=== PATIENT | male | born 1935 | race Caucasian/White ===

== ENCOUNTER 2017-02-14 15:01 | Emergency (ER) | payer MEDICARE, OTHER ==
[~2017-02-14] VITALS: Ht 180.3 cm; Wt 87.0 kg
[2017-02-14 15:05] VITALS: BP 176/115; PULSE 144; RESP 18; TEMP 97.9; O2SAT 94
[2017-02-14] MEDS ORDERED: ONDANSETRON HCL 4 MG/2 ML VIAL IVP ONE (15:30)
[2017-02-14] MEDS ORDERED: DILTIAZEM HCL 25 MG/5 ML VIAL IV ONE (15:30)
[2017-02-14] MEDS ORDERED: SODIUM CHLOR 0.9% 1000 ML INJ 1,000 ML IV ONE (15:30)
--- NOTE | 2017-02-14 15:32 | PD ---
HPI Chief Complaint: Respiratory Symptoms Time Seen by Provider: 15:27 Travel History International Travel<30 days: No Contact w/Intl Traveler<30days: No Traveled to known affect area: No History of Present Illness HPI This patient presents with rapid heart beat. He feels weak and lightheaded. He has history of chronic A. fib on Xarelto. For The last 3 days he's had nausea and vomiting and diarrhea and not take any of his medications. Severity is moderate. No alleviating factors. Patient has a daily heavy alcohol abuser. Denies alcohol today. Denies seizure activity. Duration 3 days PFSH Social History Alcohol Use: Yes Tobacco Use: No Substance Use: No Allergies-Medications (Allergen,Severity, Reaction): Coded Allergies: No Known Allergies (Unverified , 02/14/17) Reported Meds & Prescriptions Reported Meds & Active Scripts Active Reported Fenofibrate 150 Mg Cap 200 Mg PO DAILY Lisinopril 5 Mg Tab 5 Mg PO DAILY Xarelto (Rivaroxaban) 15 Mg Tab 15 Mg PO DAILY Tamsulosin (Tamsulosin HCl) 0.4 Mg Cap 0.4 Mg PO HS Duloxetine DR (Duloxetine HCl) 30 Mg Capdr 50 Mg PO DAILY Metoprolol Tartrate 100 Mg Tab 100 Mg PO DAILY Omeprazole 20 Mg Tab 20 Mg PO DAILY Uloric (Febuxostat) 40 Mg Tab 1 Tab PO DAILY Tiazac (Diltiazem ER 24 HR) 240 Mg Caper 240 Mg PO DAILY Review of Systems General / Constitutional: No: Fever Eyes: No: Visual changes HENT: No: Headaches Cardiovascular: Positive: Irregular Rhythm, Tachycardia, No: Chest Pain or Discomfort Respiratory: No: Shortness of Breath Gastrointestinal: No: Abdominal Pain Genitourinary: No: Dysuria Musculoskeletal: Positive: Weakness, No: Pain Skin: No Rash Neurologic: Positive: Weakness Psychiatric: Positive: Substance Abuse, No: Depression Endocrine: No: Polydipsia Hematologic/Lymphatic: No: Easy Bruising Physical Exam Narrative GENERAL: Well-nourished, well-developed patient in no apparent distress. SKIN: Focused skin assessment reveals no rash and nodules. Skin is Warm and dry. HEAD: Atraumatic. Normocephalic. EYES: Pupils equal and round. No scleral icterus. No injection or drainage. ENT: No nasal bleeding or discharge. Mucous membranes pink and moist. NECK: Trachea midline. No JVD. CARDIOVASCULAR: Irregularly irregular rhythm. No murmur appreciated. Rate of 150 RESPIRATORY: No accessory muscle use. Clear to auscultation. Breath sounds equal bilaterally. GASTROINTESTINAL: Abdomen soft, non-tender, nondistended. Hepatic and splenic margins not palpable. MUSCULOSKELETAL: No obvious deformities. No clubbing. No cyanosis. No edema. NEUROLOGICAL: Awake and alert. No obvious cranial nerve deficits. Motor grossly within normal limits. Normal speech. PSYCHIATRIC: Appropriate mood and affect; insight and judgment normal. Data Data Last Documented VS Vital Signs Date Time Temp Pulse Resp B/P Pulse Ox O2 Delivery O2 Flow Rate FiO2 02/14/17 16:39 92 20 157/95 98 Room Air 02/14/17 15:05 97.9 Orders Iv Access Insert/Monitor (02/14/17 15:28) Complete Blood Count With Diff (02/14/17 15:28) Basic Metabolic Panel (Bmp) (02/14/17 15:28) Ondansetron Inj (Zofran Inj) (02/14/17 15:30) Sodium Chlor 0.9% 1000 Ml Inj (Ns 1000 M (02/14/17 15:30) Diltiazem Inj (Cardizem Inj) (02/14/17 15:30) Alcohol (Ethanol) (02/14/17 15:29) Labs Laboratory Tests Test 02/14/17 15:30 White Blood Count 8.0 TH/MM3 Red Blood Count 5.38 MIL/MM3 Hemoglobin 16.7 GM/DL Hematocrit 49.9 % Mean Corpuscular Volume 92.9 FL Mean Corpuscular Hemoglobin 31.0 PG Mean Corpuscular Hemoglobin 33.4 % Concent Red Cell Distribution Width 13.8 % Platelet Count 166 TH/MM3 Mean Platelet Volume 8.9 FL Neutrophils (%) (Auto) 78.3 % Lymphocytes (%) (Auto) 14.1 % Monocytes (%) (Auto) 6.8 % Eosinophils (%) (Auto) 0.5 % Basophils (%) (Auto) 0.3 % Neutrophils # (Auto) 6.4 TH/MM3 Lymphocytes # (Auto) 1.1 TH/MM3 Monocytes # (Auto) 0.5 TH/MM3 Eosinophils # (Auto) 0.0 TH/MM3 Basophils # (Auto) 0.0 TH/MM3 CBC Comment DIFF FINAL Differential Comment Sodium Level 143 MEQ/L Potassium Level 3.9 MEQ/L Chloride Level 104 MEQ/L Carbon Dioxide Level 30.0 MEQ/L Anion Gap 9 MEQ/L Blood Urea Nitrogen 18 MG/DL Creatinine 1.10 MG/DL Estimat Glomerular Filtration 64 ML/MIN Rate Random Glucose 119 MG/DL Calcium Level 10.1 MG/DL Ethyl Alcohol Level LESS THAN 3 MG/DL MDM Medical Decision Making Medical Screen Exam Complete: Yes Emergency Medical Condition: Yes Medical Record Reviewed: Yes Differential Diagnosis A. fib with RVR, SVT, V. tach Narrative Course I have reviewed the patient's electronic medical record. IV placed I gave him 20 mg IV Cardizem for rate control CBC is normal Metabolic profile is normal Alcohol is negative Patient is neurologically intact Is not having any pain On recheck he has good rate control from 1 dose of Cardizem Extended cardiac monitoring reveals A. fib but now rate of 90 Stable for outpatient follow-up. We had a lengthy discussion with regarding the dangers of his heavy alcohol drinking while being on a blood thinner Diagnosis Primary Impression: Atrial fibrillation with RVR Additional Impressions: Alcohol abuse Nausea and vomiting Qualified Code: R11.2 - Non-intractable vomiting with nausea, unspecified vomiting type Additional Instructions: The patient was advised to follow up with their physician and return if they worsen. Limit alcohol abuse Take metoprolol when he get home Med/Other Pt SpecificInfo: Other Disposition: 01 DISCHARGE HOME Condition: Stable Bong Kauffman MD Feb 14, 2017 15:32
[2017-02-14] MEDS ORDERED: XARE15TA PO (15:36)
[2017-02-14] MEDS ORDERED: METO100T PO (15:36)
[2017-02-14] MEDS ORDERED: FENO1CAP29 PO (15:36)
[2017-02-14] MEDS ORDERED: DILT-8 PO (15:36)
[2017-02-14] MEDS ORDERED: DULO1CAP2 PO (15:36)
[2017-02-14] MEDS ORDERED: OMEP20TA PO (15:36)
[2017-02-14] MEDS ORDERED: ULOR40TA PO (15:36)
[2017-02-14] MEDS ORDERED: LISI-519 PO (15:36)
[2017-02-14] MEDS ORDERED: TAMS0.4C4 PO (15:36)
[2017-02-14 15:40] VITALS: BP 143/91; PULSE 132; RESP 20; O2SAT 95
[2017-02-14 15:54] VITALS: BP 135/72; PULSE 92; RESP 20; O2SAT 96
[2017-02-14 16:17] LABS: AUTOMATED NEUTROPHIL # 6.4 TH/MM3 (1.8-7.7); BASOPHIL % 0.3 % (0.0-2.0); EOSINOPHIL % 0.5 % (0.0-4.0); HEMATOCRIT 49.9 % (39.0-51.0); HEMO FLAGS DIFF FINAL; LYMPH % 14.1 % (9.0-44.0); LYMPHOCYTE # 1.1 TH/MM3 (1.0-4.8); MEAN CELL VOLUME 92.9 FL (80.0-100.0); MEAN CORPUSCULAR HGB CONC 33.4 % (32.0-36.0); MONO % 6.8 % (0.0-8.0); NEUT % 78.3 % (16.0-70.0); PLATELET COUNT 166 TH/MM3 (150-450); RED BLOOD COUNT 5.38 MIL/MM3 (4.50-5.90); RED CELL DISTRIBUTION WIDTH 13.8 % (11.6-17.2)
[2017-02-14 16:25] LABS: POTASSIUM 3.9 MEQ/L (3.5-5.1)
[2017-02-14 16:39] VITALS: BP 157/95; PULSE 2; PULSE 92; RESP 20; O2SAT 98
[2017-02-14] MEDS ORDERED: ZOFR4TAB PO ×2 (17:37→18:08)
[2017-02-14 17:53] VITALS: BP 160/93; PULSE 97; RESP 16; O2SAT 93
--- NOTE | 2017-02-15 16:42 | EKG ---
Date Performed: 02/14/2017 Time Performed: 15:18:29 PTAGE: 82 years EKG: ATRIAL FIBRILLATION WITH RAPID VENTRICULAR RESPONSE LOW QRS VOLTAGE IN EXTREMITY LEADS MODE RATE ST DEPRESSION ABNORMAL ECG NO PREVIOUS TRACING DOCTOR: Clark Roberts Interpretating Date/Time 02/15/2017 16:40:21
== END 2017-02-14 18:22 | disposition home or self-care (01) ==
LOC: PHED 15:01
DX: I48.2 Chronic atrial fibrillation (principal); Z79.01 Long term (current) use of anticoagulants; R11.2 Nausea with vomiting, unspecified; F10.10 Alcohol abuse, uncomplicated
CPT/HCPCS: 80048; 80307; 85025; 93005; 96361; 96374; 96375; 99284; J2405; J7030

== ENCOUNTER 2017-12-02 05:55 | Day surgery (SDC) | payer MEDICARE, OTHER ==
[~2017-12-02] VITALS: Ht 180.3 cm; Wt 85.0 kg
[~2017-12-02 05:55] MED LIST: DILT-8 PO; DULO1CAP2 PO; FENO1CAP29 PO; LISI-519 PO; METO100T PO; OMEP20TA93 PO; TAMS0.4C4 PO; ULOR40TA PO; XARE15TA PO; ZOFR4TAB PO
[2017-12-02 06:53] VITALS: BP 162/102; PULSE 90; RESP 20; TEMP 98; O2SAT 97
[2017-12-02] MEDS ORDERED: OCUVTAB4 PO (07:14)
[2017-12-02] MEDS ORDERED: FLUT1INH INH (07:14)
[2017-12-02] MEDS ORDERED: FURO40TA PO (07:14)
[2017-12-02] MEDS ORDERED: AZEL1SPR2 EACH NARE (07:14)
[2017-12-02] MEDS ORDERED: NEBI20 PO (07:14)
[2017-12-02] MEDS ORDERED: DIGO0.12 PO (07:14)
[2017-12-02 07:15] LABS: AUTOMATED NEUTROPHIL # 4.5 TH/MM3 (1.8-7.7); BASOPHIL # 0.1 TH/MM3 (0-0.2); BASOPHIL % 0.8 % (0.0-2.0); EOSINOPHIL # 0.3 TH/MM3 (0-0.4); EOSINOPHIL % 4.1 % (0.0-4.0); HEMATOCRIT 45.7 % (39.0-51.0); HEMOGLOBIN 15.2 GM/DL (13.0-17.0); LYMPH % 20.4 % (9.0-44.0); LYMPHOCYTE # 1.4 TH/MM3 (1.0-4.8); MEAN CELL VOLUME 93.3 FL (80.0-100.0); MEAN CORPUSCULAR HEMOGLOBIN 31.1 PG (27.0-34.0); MEAN CORPUSCULAR HGB CONC 33.3 % (32.0-36.0); MEAN PLATELET VOLUME 7.4 FL (7.0-11.0); MONO % 8.7 % (0.0-8.0); MONOCYTE # 0.6 TH/MM3 (0-0.9); PLATELET COUNT 167 TH/MM3 (150-450); RED CELL DISTRIBUTION WIDTH 15.2 % (11.6-17.2); WHITE BLOOD COUNT 6.8 TH/MM3 (4.0-11.0)
[2017-12-02] MEDS ORDERED: CHLORHEXIDINE GLUCONATE 2 % 1 PACK (2 CLOTHS) TOPICAL PRN (07:15)
[2017-12-02] MEDS ORDERED: LACTATED RINGER'S 1000 ML IV PRN (07:15)
[2017-12-02] MEDS ORDERED: SODIUM CHLOR 0.45% 1000 ML INJ 1,000 ML IV SCH (07:15)
[2017-12-02] MEDS ORDERED: POVIDONE IODINE 5% (ANTISEPSIS KIT) 4 APPLICATIONS EACH NARE PRN (07:15)
[2017-12-02] MEDS ORDERED: SODIUM CHLORID 0.9% 500 ML IV PRN (07:15)
[2017-12-02] MEDS ORDERED: METOPROLOL TARTRATE 25 MG TAB PO PRN (07:15)
[2017-12-02 07:31] LABS: INTERNATIONAL NORMALIZED RATIO 1.1 RATIO; PROTHROMBIN TIME - PATIENT 11.1 SEC (9.8-11.6)
[2017-12-02 07:32] LABS: BICARBONATE 29.4 MEQ/L (21.0-32.0); CREATININE 1.11 MG/DL (0.60-1.30)
--- NOTE | 2017-12-02 08:51 | MR ---
cc: Dania Najera MD DATE: 12/02/2017 PROCEDURE PERFORMED: Fiberoptic bronchoscopy, flexible. REASON FOR BRONCHOSCOPY: Right upper lobe, right middle lobe lung infiltrates, rule out underlying malignancy, rule out chronic inflammatory process. PROCEDURE: Fiberoptic bronchoscopy performed via LMA. Vocal cords intact. Trachea moderately hyperemic. Leigh sharp. Right mainstem bronchus, right upper, middle, and lower lobes, left main bronchus, left upper and lower lobes inspected. No obstructive pathology is seen. Diffuse hyperemia throughout the tracheobronchial tree is noted. The bronchoscope was then introduced to the right upper lung where cytological brush biopsies and microbiology brushings with a protected catheter were used. The procedure was well tolerated. Washings from both sides of the tracheobronchial tree were obtained for routine TB, fungal cultures as well as cytologic exam. The patient was transferred to recovery in stable condition. IMPRESSION: 1. Moderate tracheobronchitis. 2. No obstruction or mass lesion. 3. Samples obtained as above. 4. Procedure well tolerated. 5. The patient transferred to recovery in stable condition. Dania Najera MD WWW/TL , 08:16 AM , 08:50 AM
[2017-12-02] MEDS ORDERED: DO NOT ADM ANY ANTICOAGULANT DRUGS PRN (09:00)
[2017-12-02 09:05] VITALS: BP 139/72; PULSE 73; RESP 20; TEMP 98; O2SAT 98
[2017-12-02 10:12] VITALS: BP 137/84; PULSE 76; RESP 20; O2SAT 97
== END 2017-12-02 10:31 | disposition home or self-care (01) ==
LOC: HRIP 05:55 → HROP 05:55
PROVIDERS: ATTEND Internal Medicine Sleep Medicine
DX: J40 Bronchitis, not specified as acute or chronic (principal); I10 Essential (primary) hypertension; E78.5 Hyperlipidemia, unspecified; I48.91 Unspecified atrial fibrillation; Z79.01 Long term (current) use of anticoagulants
CPT/HCPCS: 31623; 80048; 85025; 85610; 85730; 87015; 87070; 87071; 87102; 87116; 87205; 87206; 88112